=== PATIENT | female | born 1960 | race Caucasian/White ===

== ENCOUNTER 2018-10-15 08:30 | Emergency (ER) | payer OTHER ==
[~2018-10-15] VITALS: Ht 157.5 cm; Wt 72.6 kg
[~2018-10-15 08:30] MED LIST: ALBUTEROL SULF8.5 GM INH; AMBIEN5 MG PO; AMLODIPINE BESYL5 MG PO; ASPIRIN EC81 MG PO; DOXAZOSIN PO; LEVAQUIN500 MG PO; LISINOPRIL20 MG PO; METOPROLOL SUC100 MG PO; NORVASC10 MG PO; PREDNISONE20 MG PO; SYMBICORT 16010.2 GM INH; VENTOLIN HFA18 GM INH; XYZAL5 MG PO
--- OUTSIDE RECORDS SUMMARY | 2018-10-15 08:33 | XMS REPORT ---
[facility] Address Unknown Phone Unavailable Care Team Providers Care Cv Tech Name Role Phone Teri PACE Unavailable Unavailable Problems This patient has no known problems. Allergies, Adverse Reactions, Alerts This patient has no known allergies or adverse reactions. Medications This patient has no known medications. Results Test Description Test Time Test Comments Text Results Atomic Results Result Comments CHEST SINGLE (NOT PORTABLE) [place] [address] Patient Name: SHANTHI SHINE MR #: [id number] : 1960 Age/Sex: 56/F Req #: [id number] Adm Physician: Ordered by: KATE PACE MD Report #: [id number] Location: ER Room/Bed: Procedure: [id number] DX/CHEST SINGLE (NOT PORTABLE) Exam Date: 07/03/17 Exam Time: 1325 REPORT STATUS: Signed PROCEDURE: CHEST SINGLE (NOT PORTABLE) COMPARISON: Chest x-ray, 08/15/15. INDICATIONS: PASSED OUT-SWEATING FINDINGS: Lines and tubes: None Heart size normal. No focal pulmonary opacity, pleural effusion or pneumothorax. Upper abdomen unremarkable with no free air. No acute bony abnormality. CONCLUSION: No evidence for acute disease. Dictated by: Gavino Patel M.D. on 07/03/2017 at 13:51 Electronically approved by: Gavino Patel M.D. on 07/03/2017 at 13:51 Dictated By: GAVINO PATEL MD 1351 Transcribed By: SHANNAN on 07/03/17 1351 COPY TO: KATE PACE MD CT BRAIN WO [place] [address] Patient Name: SHANTHI SHINE MR #: [id number] : 1960 Age/Sex: 56/F Req #: [id number] Adm Physician: Ordered by: KATE PACE MD Report #: [id number] Location: ER Room/Bed: Procedure: [id number] CT/CT BRAIN WO Exam Date: 07/03/17 Exam Time: 1327 REPORT STATUS: Signed History:Passed out, dizziness Comparison studies:None Technique: Axial images were obtained from the skull base to the vertex. Coronal and sagittal images reconstructed from the axial data. Intravenous contrast: None Notified of the study at 2:40 PM. Findings: Scalp/skull: No abnormalities. Extra-axial spaces: Left frontal dural based calcified extra-axial mass measuring 2.4 x 1.3 x 2.3 cm (SI-AP-Trans) mild mass effect over the adjacent brain and without vasogenic edema or midline shift. Brain sulci: Mildly prominent. Ventricles: Mild compensatory dilatation. No hydrocephalus. Parenchyma: No abnormal densities. No masses, hemorrhage, acute or chronic cortical vascular insults. Sellar/suprasellar region: No abnormalities. Craniocervical junction: Patent foramen magnum. No Chiari one malformation. Incidental findings: Atherosclerotic calcifications in the carotid siphons . Impression: No acute abnormalities. Calcified dural based left frontal mass with mild mass effect over the adjacent brain parenchyma, without vasogenic edema or midline shift, most likely related to meningioma. The above finding were reported and acknowledged by Dr. Pace at 3:00 PM 07/03/2017 Signed by: DR Ian Bridges M.D. on 07/03/2017 3:48 PM Dictated By: IAN LOPEZ MD 154 Transcribed By: TJ on 07/03/171547 COPY TO: KATE PACE MD
[2018-10-15] MEDS ORDERED: MORPHINE SULFATE INJ 4 MG/ML INJ 1ML IV STA (10:21)
[2018-10-15] MEDS ORDERED: SODIUM CHLORIDE 0.9% 1000ML 1,000 ML IV STA (10:21)
[2018-10-15] MEDS ORDERED: ONDANSETRON HCL INJ 2MG/ML 2ML 2 MG/ML VIAL IV STA (10:21)
[2018-10-15] MEDS ORDERED: ASPIRIN 81 MG CHEW TAB PO ONE (10:30)
[2018-10-15 10:41] LABS: BILIRUBIN,URINE NEGATIVE (NEGATIVE); CLARITY,URINE SL CLOUDY (CLEAR); COLOR,URINE YELLOW (YELLOW); KETONES,URINE NEGATIVE (NEGATIVE); LEUKOCYTE ESTERASE ,URINE NEGATIVE (NEGATIVE); NITRITE,URINE NEGATIVE (NEGATIVE); PROTEIN,URINE DIPSTICK NEGATIVE (NEGATIVE); URINE UROBILINOGEN 0.2 mg/dL (0.2 - 1)
[2018-10-15] MEDS ORDERED: PANTOPRAZOLE 40 MG 10ML VIAL IV NR (10:45)
[2018-10-15 10:54] LABS: BACTERIA,URINE FEW /HPF; EPITHELIAL CELLS,URINE FEW /LPF; WBC,URINE (MAN) 0-5 /HPF (0-5)
[2018-10-15 12:15] LABS: BASOPHILS # (AUTO) 0.1 (0.0-0.1); BASOPHILS % 0.7 % (0.0-1.0); EOSINOPHILS # (AUTO) 0.3 (0.0-0.4); EOSINOPHILS % 3.5 % (0.0-6.0); HEMATOCRIT 42.3 % (34.2-44.1); HEMOGLOBIN 14.1 g/dL (12.0-16.0); LYMPHOCYTES # (AUTO) 3.1 (1.0-3.2); MEAN CORPUSCULAR HEMOGLOBIN 29.7 pg (28-32); MEAN CORPUSCULAR HGB CONC 33.3 g/dL (31-35); MEAN CORPUSCULAR VOLUME 89.1 fL (81-99); MONOCYTES # (AUTO) 0.6 (0.2-0.8); MONOCYTES % 5.6 % (4.4-11.3); NEUTROPHILS # (AUTO) 5.7 (2.1-6.9); PLATELET COUNT 231 x10e3/uL (140-360); RED BLOOD COUNT 4.75 x10e6/uL (3.6-5.1); RED CELL DISTRIBUTION WIDTH 12.9 % (11.7-14.4)
[2018-10-15 12:34] LABS: ALANINE AMINOTRANSFERASE 13 IU/L (0-55); ALBUMIN 4.2 g/dL (3.5-5.0); ALBUMIN/GLOBULIN RATIO 1.5 (0.8-2.0); ALKALINE PHOSPHATASE 71 IU/L (40-150); ANION GAP 13.9 mmol/L (8-16); BLOOD UREA NITROGEN 13 mg/dL (7-26); BUN/CREATININE RATIO 18 (6-25); CALCIUM 9.6 mg/dL (8.4-10.2); CARBON DIOXIDE 23 mmol/L (22-29); CHLORIDE 104 mmol/L (98-107); CREATINE KINASE 57 IU/L (29-168); CREATININE, SERUM 0.72 mg/dL (0.57-1.11); EST GLOMERULAR FILTRATION RATE > 60 ML/MIN (60-); GLUCOSE 94 mg/dL (74-118); LIPASE 26 U/L (8-78); POTASSIUM 3.9 mmol/L (3.5-5.1); SODIUM 137 mmol/L (136-145)
--- NOTE | 2018-10-15 13:52 | Diagnostic Imaging Report ---
EXAMINATION: CHEST SINGLE (PORTABLE) INDICATION: Left sided back pain. COMPARISON: Chest radiograph 03/21/2013. FINDINGS: TUBES and LINES: None. LUNGS: Lungs are well inflated. Lungs are clear. There is no evidence of pneumonia or pulmonary edema. PLEURA: No pleural effusion or pneumothorax. HEART AND MEDIASTINUM: The cardiomediastinal silhouette is unremarkable. BONES AND SOFT TISSUES: No acute osseous abnormality. UPPER ABDOMEN: No free air under the diaphragm. IMPRESSION: No acute radiographic abnormality. Signed by: Dr. Paul Arroyo MD on 10/15/2018 1:49 PM
--- NOTE | 2018-10-15 14:23 | Diagnostic Imaging Report ---
EXAM: CT of the abdomen and pelvis WITH contrast HISTORY: Abdominal pain, right side, now left lower back pain and shoulder pain, nausea, history of hysterectomy COMPARISON: None. TECHNIQUE: The abdomen and pelvis were scanned utilizing a multidetector helical scanner. Coronal and sagittal reformats are provided. PROTOCOL: Routine IV CONTRAST: 100 cc of Isovue-370. ORAL CONTRAST: Water RADIATION DOSE: Total DLP: 421.97 mGy*cm Estimated effective dose: (DLP x 0.015 x size factor) Dose modulation, iterative reconstruction, and/or weight based adjustment of the mA/kV was utilized to reduce the radiation dose to as low as reasonably achievable. COMPLICATIONS: None FINDINGS: LOWER THORAX: Unremarkable. HEPATOBILIARY: A subcentimeter hypodensity at the lateral aspect of the right lobe near the dome (series 2 image 15), statistically most likely a small incidental cyst or hemangioma. No biliary dilation. No gallstone. SPLEEN: No splenomegaly. PANCREAS: No focal masses or ductal dilatation. ADRENALS: No discrete adrenal nodule. 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 No hydronephrosis, stones, or definite solid mass lesions. PELVIC ORGANS/BLADDER: The visualized pelvic organs appear unremarkable. GI TRACT: No dilation or wall thickening identified. The appendix is not definitively visualized, but no pericecal inflammatory changes.. PERITONEUM / RETROPERITONEUM: No free air or fluid. LYMPH NODES: No pathologically enlarged lymph node. VESSELS: Diffuse scattered atherosclerotic vascular calcifications. BONES: No aggressive osseous lesion or acute fracture. Multilevel degenerative changes, most notably moderate at L5-S1. SOFT TISSUES: Unremarkable. IMPRESSION: No acute CT abnormality within the abdomen or pelvis. Signed by: Dr. Miguel A Lopez D.O., M.M.M. on 10/15/2018 2:19 PM
[2018-10-15] MEDS ORDERED: KETOROLAC TROMETHAMINE 30 MG/ML VIAL IV ONE (15:30)
[2018-10-15] MEDS ORDERED: IOPAMIDOL 370 MG/ML 200 ML INFUS..BTL INJ ONE (16:47)
[2018-10-15] MEDS ORDERED: SODIUM CHLORIDE 0.9% 50ML 50 ML ONE (16:47)
== END 2018-10-15 15:51 | disposition home or self-care (01) ==
LOC: ER 08:30
DX: R10.32 Left lower quadrant pain (principal); R10.84 Generalized abdominal pain; M54.5 Low back pain; R11.2 Nausea with vomiting, unspecified; I10 Essential (primary) hypertension; J45.909 Unspecified asthma, uncomplicated
CPT/HCPCS: 36415; 71045; 74177; 80053; 81001; 82550; 82553; 83690; 84484; 85025; 99284; J1885; J2270; J2405; J7030; Q9967

== ENCOUNTER → 2021-07-05 | Outpatient (CLI) | payer BC | LOC: MAMMO 13:28 | PROVIDERS: ATTEND Family Medicine | DX: Z12.31 Encounter for screening mammogram for malignant neoplasm of breast (principal) | CPT/HCPCS: 77067 ==

== ENCOUNTER 2021-12-07 17:17 | Emergency (ER) | payer BC ==
[~2021-12-07] VITALS: Ht 157.5 cm; Wt 72.6 kg
[2021-12-07] MEDS ORDERED: METOPROLOL TARTRATE INJ 1 MG/ML VIAL IV ONE (17:45)
[2021-12-07 18:38] LABS: BASOPHILS % 0.3 % (0.0-1.0); EOSINOPHILS # (AUTO) 0.2 (0.0-0.4); EOSINOPHILS % 2.2 % (0.0-6.0); HEMATOCRIT 42.6 % (34.2-44.1); HEMOGLOBIN 14.2 g/dL (12.0-16.0); LYMPHOCYTES # (AUTO) 3.4 (1.0-3.2); LYMPHOCYTES % 33.6 % (18.0-39.1); MEAN CORPUSCULAR HEMOGLOBIN 29.6 pg (28-32); MEAN CORPUSCULAR HGB CONC 33.3 g/dL (31-35); MEAN CORPUSCULAR VOLUME 88.9 fL (81-99); MONOCYTES # (AUTO) 0.7 (0.2-0.8); MONOCYTES % 6.9 % (4.4-11.3); NEUTROPHILS # (AUTO) 5.8 (2.1-6.9); NEUTROPHILS % 56.8 % (38.7-80.0); PLATELET COUNT 238 x10e3/uL (140-360); RED BLOOD COUNT 4.79 x10e6/uL (3.6-5.1); RED CELL DISTRIBUTION WIDTH 12.5 % (11.7-14.4)
[2021-12-07 18:55] LABS: ALBUMIN 4.4 g/dL (3.5-5.0); ALBUMIN/GLOBULIN RATIO 1.4 (0.8-2.0); ANION GAP 13.6 mmol/L (8-16); CALCIUM 9.5 mg/dL (8.4-10.2); CREATININE, SERUM 0.81 mg/dL (0.57-1.11); POTASSIUM 3.6 mmol/L (3.5-5.1)
[2021-12-07] MEDS ORDERED: ONDANSETRON HCL INJ 2MG/ML 2ML 2 MG/ML VIAL IV STA (19:20)
[2021-12-07] MEDS ORDERED: SODIUM CHLORIDE 0.9% 50ML 0 ML ONE (20:00)
[2021-12-07] MEDS ORDERED: IOPAMIDOL 370 MG/ML 200 ML INFUS..BTL INJ ONE (20:00)
[2021-12-07] MEDS ORDERED: SODIUM CHLORIDE 0.9% 100 ML ONE (20:05)
[2021-12-07] MEDS ORDERED: KETOROLAC TROMETHAMINE 30 MG/ML VIAL IV STA (20:06)
[2021-12-07] MEDS ORDERED: METOCLOPRAMIDE HCL 10 MG/2ML VIAL IV ONE (20:15)
[2021-12-07] MEDS ORDERED: ACETAMIN/BUTALBITAL/CAFFEINE TAB PO ONE (20:15)
[2021-12-07] MEDS ORDERED: DIPHENHYDRAMINE HCL INJ 50 MG/ML VIAL IV ONE (20:15)
[2021-12-07 21:02] VITALS: BP 158/86
== END 2021-12-07 21:04 | disposition home or self-care (01) ==
LOC: ER 17:45
DX: R51.9 Headache, unspecified (principal); I10 Essential (primary) hypertension; J45.909 Unspecified asthma, uncomplicated
CPT/HCPCS: 36415; 70496; 80053; 85025; 93005; 99284; J1200; J1885; J2405; J2765; J7050; Q9967

== ENCOUNTER 2025-04-02 17:49 | Emergency (ER) | payer BC ==
[~2025-04-02] VITALS: Ht 157.5 cm; Wt 72.6 kg
[2025-04-02 18:33] VITALS: TEMP 98.1
[2025-04-02 18:58] LABS: BASOPHILS % 0.4 % (0.0-1.0); EOSINOPHILS % 1.9 % (0.0-6.0); LYMPHOCYTES % 35.2 % (18.0-39.1); MONOCYTES % 7.6 % (4.4-11.3); NEUTROPHILS % 54.7 % (38.7-80.0); RED CELL DISTRIBUTION WIDTH 12.5 % (11.7-14.4)
[2025-04-02] MEDS ORDERED: NITROGLYCERIN 0.2 MG/HR PATCH ONE (19:11)
[2025-04-02 19:14] LABS: EST GLOMERULAR FILTRATION RATE 72.0 ML/MIN (>=60)
[2025-04-02] MEDS: ASPIRIN 81 MG CHEW TAB PO ONE (19:25)
[2025-04-02] MEDS: NITROGLYCERIN 0.4 MG PATCH TOP STA (19:27)
[2025-04-02 23:48] VITALS: PULSE 103; RESP 20; O2SAT 97
[2025-04-03 00:22] VITALS: BP 198/94; PULSE 77; RESP 20; TEMP 98
[2025-04-03] MEDS ORDERED: NITROGLYCERIN 0.1MG/HR PATCH TOP SCH (09:00)
== END 2025-04-03 00:29 | disposition other institution (70) ==
LOC: ER 18:08
DX: R06.02 Shortness of breath (principal); R07.9 Chest pain, unspecified; I16.1 Hypertensive emergency; I10 Essential (primary) hypertension; R51.9 Headache, unspecified; J45.909 Unspecified asthma, uncomplicated; R94.31 Abnormal electrocardiogram [ECG] [EKG]
CPT/HCPCS: 36415; 71045; 80053; 83690; 84484; 85025; 93005; 99284